=== PATIENT | male | born 1990 | race Hispanic/Latino ===

== ENCOUNTER 2022-11-21 09:54 | Emergency (ER) | payer OTHER ==
[2022-11-21] MEDS ORDERED: Lidocaine 2% 20 ml MDV ONE (10:14)
[2022-11-21] MEDS ORDERED: Boostrix 0.5 ML (Tdap) VIAL (>/=7 yrs of age) ONE (10:29)
[2022-11-21] MEDS ORDERED: Bacitracin 1 PK ONE (11:10)
== END 2022-11-21 11:30 | disposition home or self-care (01) ==
LOC: MADERS 09:54
DX: S61.215A Laceration without foreign body of left ring finger without damage to nail, initial encounter (principal); W26.8XXA Contact with other sharp object(s), not elsewhere classified, initial encounter; Y92.69 Other specified industrial and construction area as the place of occurrence of the external cause; Z23 Encounter for immunization
CPT/HCPCS: 12001; 90471; 90715